=== PATIENT | female | born 1990 | race Caucasian/White ===

== ENCOUNTER 2019-12-13 13:00 | Emergency (ER) | payer OTHER, SELFPAY ==
[2019-12-13 13:11] VITALS: BP 124/72; PULSE 77; RESP 16; TEMP 37.3; O2SAT 100
--- NOTE | 2019-12-13 13:29 | ED.SKABFB ---
HPI - Skin/Abscess/Foreign Bdy General Chief complaint: Skin/Abscess/Foreign Body Stated complaint: rash Time Seen by Provider: 12/13/19 13:29 Source: patient Mode of arrival: ambulatory Limitations: no limitations History of Present Illness HPI narrative: Mechelle Huggins is a 29 yo female here for long-term care with no PMH comes to express care with a rash on upper extremities, and bilateral cheeks. States started to slip the bed with them 2 days ago and the next morning she woke up with her right side of her face swollen, with rash and left upper arm and right ring finger. Feels she was exposed to poison liang, had severe cases of this in the past. Using [id number] medication which is not controlling, the rash Related Data Allergies Allergy/AdvReac Type Severity Reaction Status Date / Time No Known Allergies Allergy Verified 12/13/19 13:23 Review of Systems Review of Systems: Narrative: CONSTITUTIONAL: Denies fever, chills, sweats. EYES: Denies visual changes, redness, discharge. ENT: Denies rhinorrhea, congestion, sore throat, otalgia. CARDIOVASCULAR: Denies chest pain, palpitations, edema. RESPIRATORY: Denies dyspnea, wheezing, cough GASTROINTESTINAL: Denies abdominal pain, nausea, vomiting, diarrhea. GENITOURINARY: Denies dysuria, hematuria, abnormal discharge SKIN: Rash on both cheeks and left arm right fingers-started 2 days ago NEUROLOGIC: Denies numbness, or focal weakness. PSYCHIATRIC: Denies anxiety or depression. PMFSH Past Medical History Medical History No active medical problems Family History Family History (Updated 12/13/19 @ 13:39 by Kimi Kendall CNP) Other Diabetes mellitus Social History Social History (Updated 12/13/19 @ 13:39 by Kimi Kendall CNP) Smoking packs per day: 0.5 Smoking cigarettes per day: 10.0 Smoking status: Current every day smoker Alcohol intake: current Comments At time of signature, I agree with nursing past medical, surgical, social and family history. There is no relevant family history pertinent to the presenting complaint. Exam Narrative: Exam Narrative: GENERAL: This is a well-nourished, well-developed patient, in mild distress. HEAD: normocephalic, atraumatic. EYES: Sclera clear/white. Vision is grossly intact. EARS: External ears normal, . Hearing grossly intact. NOSE: External nose normal without nasal discharge, nares without redness, no rhinorrhea. THROAT: Mucous membranes moist, clear to auscultation NECK: Neck supple, non-tender CARDIOVASCULAR: Regular rate and rhythm without murmurs, gallops, or rubs. RESPIRATORY: Clear to auscultation. Breath sounds equal bilaterally. No wheezes, rales, or rhonchi. GASTROINTESTINAL: Abdomen soft, non-tender, SKIN: warm, intact with erythematous papular rash on bilateral cheeks right ring finger, left upper arm. NEURO: awake, alert, and oriented to person, place and time. There were no obvious focal neurologic abnormalities. Steady gait EXTREMITIES: Normal range of motion. BACK: Nontender without deformity Course Course Emergency Course: Given Solu-Medrol injection on site Started on prednisone taper with Pepcid and Benadryl Washing dog all close to came in contact with before her rash developed Vital Signs Vital signs: Vital Signs Temperature 99.1 F 12/13/19 13:11 Pulse Rate 77 12/13/19 13:11 Respiratory Rate 16 12/13/19 13:11 Blood Pressure 124/72 12/13/19 13:11 Pulse Oximetry 100 12/13/19 13:11 Temperature 99.1 F 12/13/19 13:11 Pulse Rate 77 12/13/19 13:11 Respiratory Rate 16 12/13/19 13:11 Blood Pressure 124/72 12/13/19 13:11 Pulse Oximetry 100 12/13/19 13:11 MDM - Skin/Abscess/Foreign Bdy Differential Diagnosis Differential diagnosis: Likely urticaria, cellulitis, eczema, insect bites, impetigo, contact dermatitis and other Discharge Plan Discharge Clinical Impression: Contact
[2019-12-13] MEDS: methylPREDNISolone ACETATE 80 MG/ML VIAL IM (13:48)
== END 2019-12-13 14:08 | disposition home or self-care (01) ==
PROVIDERS: Emergency Provider Nurse Practitioner
DX: L23.7 Allergic contact dermatitis due to plants, except food (principal); F17.210 Nicotine dependence, cigarettes, uncomplicated
CPT/HCPCS: 96372; 99213; G0463; J1040